=== PATIENT | female | born 1970 | race Caucasian/White ===

== ENCOUNTER 2016-10-13 07:53 | Observation (INO) | payer OTHER ==
[~2016-10-13] VITALS: Ht 167.6 cm; Wt 97.1 kg
--- NOTE | ~2016-10-13 | EKG ---
[place] [address] [address] [place] [address] ELECTROCARDIOGRAM REPORT Name: NKECHI MONTIELSHIRLEY MONREAL Room #: 170-2 ADM IN M.R.#: [id number] Admission: 10/13/16 Attend Phys: John Bowling DO Discharge: Date of : 72 Report #: [id number] THIS REPORT FOR: //name// [facility] ED Test Date: 2016-10-13 Test Time: 08:15:31 Pat Name: APOLINAR MONTIEL Department: Room: 170 Gender: F [employer]'S Engineer: Harry LONG : 1970 Requested By: Nola Tinoco Order Number: [id number] MD: Ney Hernandez Measurements Intervals [place] Rate: 94 P: 53 CT: 162 QRS: 25 QRSD: 80 T: 38 QT: 374 QTc: 468 Interpretive Statements Sinus rhythm Low voltage, extremity and precordial leads No previous ECG available for comparison Electronically Signed On 10-13-2016 9:49:23 CDT by Ney Hernandez [email or web address] <ELECTRONICALLY SIGNED> By: Ney Hernandez MD, [facility] 10/13/16 0949 0815 4 Ney Hernandez MD, FACC /EPI
--- NOTE | ~2016-10-13 | 2DMMODE ---
[facility] [place] [employer] [place] [address] 2 D/M-MODE ECHOCARDIOGRAM Name: APOLINAR MONTIEL Room #: 437-P [facility] IN M.R.#: [id number] Admission: 10/13/16 Attend Phys: John Bowling, Discharge: Date of : 72 Date of Service: 10/13/16 1335 Report #: [id number] THIS REPORT FOR: //name// APPROVED REPORT EXAM: Comprehensive 2D, Doppler, and color-flow Echocardiogram Patient Location: Echo lab Blood Pressure: 133/75 mmHg HR: 93 bpm Other Information Study Quality: Good Indications Hypertension/HDD Bilateral arm tingling. 2D Dimensions RVDd: 34.59 mm LVEF(%): 69.31 (>50%) IVSd: 8.65 (7-11mm) LVOT Diam: 17.37 (18-24mm) LVDd: 53.51 mm PWd: 9.39 (7-11mm) Ascending Aorta: 28.70 mm LVDs: 32.48 (25-40mm) IVC: 12.00 mm Aortic Root: 31.00 mm Combs's LVEF: 69.31 % Volumes Left Atrial Volume (Systole) Single Plane 4CH: 33.51 mL Single Plane 2CH: 32.24 mL LA ESV Index: 18.00 mL/m2 Aortic Valve AoV Peak Rosalino.: 1.53 m/s AO Peak Gr.: 9.36 mmHg LV Max P.82 mmHg LV Max: 1.21 m/s Mitral Valve MV PHT: 87.89 ms MV E Max Rosalino.: 0.85 m/s E/A Ratio: 0.9 MV A Rosalino.: 0.97 m/s MV Decel. Time: 303.05 ms Pulmonary Valve [facility] [place] [address] [place] [address] 2 D/M-MODE ECHOCARDIOGRAM Name: APOLINAR MONTIEL [facility] Room #: 437-P ADM IN M.R.#: [id number] Admission: 10/13/16 Attend Phys: John Bowling, Discharge: Date of : 72 Date of Service: 10/13/16 1335 Report #: [id number] PV Peak Rosalino.: 1.20 m/s PV Peak Gr.: 5.78 mmHg Tricuspid Valve RAP Estimate: 5.00 mmHg Left Ventricle The left ventricle is normal size. There is normal LV segmental wall motion. There is normal left ventricular wall thickness. Left ventricular systolic function is normal. The left ventricular ejection fraction is within the normal range. Grade I - abnormal relaxation pattern. Right Ventricle The right ventricle is normal size. The right ventricular systolic function is normal. Atria The left atrium size is normal. The right atrium size is normal. Aortic Valve The aortic valve is normal in structure. No aortic regurgitation is present. There is no aortic valvular stenosis. Mitral Valve The mitral valve is normal in structure. There is no mitral valve regurgitation noted. Tricuspid Valve The tricuspid valve is normal in structure. There is no tricuspid valve regurgitation noted. Pulmonic Valve The pulmonary valve is normal in structure. There is no pulmonic valvular regurgitation. Great Vessels The aortic root is normal in size. IVC is normal in size and collapses >50% with inspiration. Pericardium There is no pericardial effusion. <Conclusion> The left ventricle is normal size. Left ventricular systolic function is normal. [facility] [place] [employer] [place] [address] 2 D/M-MODE ECHOCARDIOGRAM Name: APOLINAR MONTIEL [facility] Room #: 437-P ADM IN M.R.#: [id number] Admission: 10/13/16 Attend Phys: John Bowling, Discharge: Date of : 72 Date of Service: 10/13/16 1335 Report #: [id number] The left ventricular ejection fraction is within the normal range. The mitral valve is normal in structure. The tricuspid valve is normal in structure. The aortic valve is normal in structure. <ELECTRONICALLY SIGNED> By: Ye Hayes MD 10/13/16 1335 1335 1335 Ye Hayes MD /INF
[~2016-10-13 07:53] MED LIST: LISINOPRIL10 MG PO; [UNRECOGNIZED DRUG - OTHER]
[2016-10-13 08:22] LABS: CREATININE 0.9 mg/dL (0.6-1.3); POTASSIUM 3.4 mmol/L (3.5-5.1)
[2016-10-13 08:33] LABS: ABSOLUTE NEUTROPHILS 6.8 thou/uL (1.4-8.2); BASOPHILS 0.8 % (0.0-2.0); EOSINOPHILS 2.1 % (0.0-3.0); HEMATOCRIT 42.5 % (37.0-47.0); HEMOGLOBIN 14.3 gm/dL (12.0-15.0); LYMPHOCYTES 17.6 % (24.0-44.0); MCH 30.3 pg (26.0-34.0); MCHC 33.7 g/dL (28.0-37.0); MONOCYTES 10.9 % (1.0-8.0); PLATELET COUNT 313 thou/uL (150-400); POLYS 68.6 % (36.0-66.0); RBC 4.72 mil/uL (4.20-5.00); RDW 12.9 % (10.5-14.5); WBC 9.9 thou/uL (4.0-11.0)
[2016-10-13 08:38] LABS: MANUAL DIFF NO
[2016-10-13 11:50] LABS: CHOLESTEROL 134 mg/dL (<200); HDL CHOLESTEROL 42 mg/dL (>40); LDL CHOLESTEROL 77 mg/dL (<100); TC:HDL 3.2 Ratio (Not establshd); TRIGLYCERIDE 77 mg/dL (<150); VLDL 15 mg/dL (<40)
[2016-10-13 23:11] LABS: GLYCOHEMOGLOBIN (HGB A1C) 5.7 % (4.8-5.6)
== END 2016-10-13 19:00 | disposition home or self-care (01) ==
LOC: ER 07:53 → EROBS 09:12 → 4S 09:12
PROVIDERS: Emergency Medicine; Psychiatry & Neurology Neurology
DX: R20.9 Unspecified disturbances of skin sensation (principal); I10 Essential (primary) hypertension; Z72.0 Tobacco use